=== PATIENT | female | born 1980 | race Two or more races ===

== ENCOUNTER 2019-01-22 09:15 | Inpatient (IN) | payer OTHER ==
[~2019-01-22] VITALS: Ht 167.6 cm; Wt 71.2 kg
[2019-02-16] MEDS ORDERED: IRON325 MG PO (08:28)
[2019-02-16] MEDS ORDERED: PRENATAL FORMU1 EAC1 PO (08:28)
[2019-02-16] MEDS ORDERED: TUMS300 MG PO (08:29)
== END 2019-02-18 13:55 | disposition home or self-care (01) | DRG 807 ==
LOC: LDR 02-15 12:45 → OB/GYN 02-16 07:17 → LDR 02-16 07:17 → OB/GYN 02-16 14:32
PROVIDERS: ADMIT Obstetrics & Gynecology Maternal & Fetal Medicine
PROC: 10E0XZZ Delivery of Products of Conception, External Approach (ICD-10-PCS; principal; 2019-02-16)
PROC: 0KQM0ZZ Repair Perineum Muscle, Open Approach (ICD-10-PCS; 2019-02-16)
PROC: 10907ZC Drainage of Amniotic Fluid, Therapeutic from Products of Conception, Via Natural or Artificial Opening (ICD-10-PCS; 2019-02-16)
PROC: 0W8NXZZ Division of Female Perineum, External Approach (ICD-10-PCS; 2019-02-16)
PROC: 4A1HXCZ Monitoring of Products of Conception, Cardiac Rate, External Approach (ICD-10-PCS; 2019-02-16)
DX: O70.1 Second degree perineal laceration during delivery (principal); Z37.0 Single live birth; Z3A.38 38 weeks gestation of pregnancy

== ENCOUNTER 2019-02-08 10:22 | Outpatient (CLI) | payer OTHER | END 2019-02-08 11:24 | disposition home or self-care (01) | LOC: NST 10:22 | DX: Z34.83 Encounter for supervision of other normal pregnancy, third trimester (principal) ==

== ENCOUNTER 2019-02-15 09:56 | Outpatient (CLI) | payer OTHER ==
[2019-02-16] MEDS ORDERED: IRON325 MG PO (08:28)
[2019-02-16] MEDS ORDERED: PRENATAL FORMU1 EAC1 PO (08:28)
[2019-02-16] MEDS ORDERED: TUMS300 MG PO (08:29)
== END 2019-02-15 10:33 | disposition home or self-care (01) ==
LOC: NST 09:56
DX: Z34.83 Encounter for supervision of other normal pregnancy, third trimester (principal)